=== PATIENT | male | born 2000 | race Two or more races ===

== ENCOUNTER 2025-03-09 10:32 | Emergency (ER) | payer SELFPAY ==
[2025-03-09 10:41] VITALS: BP 127/73; PULSE 86; RESP 17; TEMP 36.7; O2SAT 98; BMI 21.8
--- NOTE | 2025-03-09 10:45 | XR_ITS ---
Examination: PA lateral chest 2 views TECHNIQUE: Upright PA lateral chest 2 views Date and time: March 09, 2025 at 1107 hours INDICATIONS: Coughing today FINDINGS: Normal heart size. Lungs are clear. The osseous structures are intact IMPRESSION: No active disease
--- NOTE | 2025-03-09 13:21 | EDNOTE_ITS ---
Upper Respiratory Inf. RME/HPI General Chief Complaint: Abdominal Pain Stated Complaint: COUGH X 3 WEEKS Time Seen by Provider: 03/09/25 10:45 Arrival date/time: 03/09/25 10:32 24-year-old male presents to the Emergency Department today with complaints of cough ongoing x 3 weeks patient reports no fever. Limitations: no limitations Related Data Previous Rx's ?Medication ?Instructions ?Recorded Ibuprofen * (MOTRIN *) 400 mg PO Q6HR PRN PAIN #25 tabs 10/29/17 albuterol sulfate 90 mcg/actuation 2 puff inhalation Q 6H PRN 03/09/25 aerosol inhaler (Ventolin HFA) shortness of breath or wheezing #8.5 grams benzonatate 100 mg capsule 100 mg PO TID #14 caps 02/13 04/08 prednisone 20 mg tablet 20 mg PO BID 3 days #6 tabs 03/09/25 Allergies Allergy/AdvReac Type Severity Reaction Status Date / Time NKA* Allergy Uncoded 03/09/25 10:35 Review of Systems Review of Systems Systems Reviewed: All systems reviewed, normal except as documented Constitutional Constitutional: Reports system reviewed and no additional complaints, except as documented, Denies fever(s) and Denies headache(s) Eyes Eyes: Reports system reviewed and no additional complaints, except as documented and Denies blurry vision ENT Ears, Nose, Mouth, and Throat: Reports system reviewed and no additional complaints, except as documented, Denies headache(s), Denies nasal congestion and Denies nasal discharge Cardiovascular Cardiovascular: Reports system reviewed and no additional complaints, except as documented, Denies chest pain and Denies dyspnea Respiratory Respiratory: Reports system reviewed and no additional complaints, except as documented, Reports chest congestion, Reports cough and Denies dyspnea Gastrointestinal Gastrointestinal: Reports system reviewed and no additional complaints, except as documented and Denies abdominal pain Integumentary/Breasts Skin/Breast: Reports system reviewed and no additional complaints, except as documented and Denies rash Neurologic Neurologic: Reports system reviewed and no additional complaints, except as documented, Reports as per HPI and Denies headache(s) Past Medical History Social History SMOKING STATUS: Never smoker ED Exam General Limitations: Present no limitations General appearance: Present alert and in no apparent distress Head Head exam: Present atraumatic, normocephalic and normal inspection Eye Eye exam: Present normal appearance, PERRL and EOMI; Absent conjunctival injection ENT ENT exam: Present normal exam, normal oropharynx and mucous membranes moist Neck Neck exam: Present normal inspection, full ROM and trachea midline Chest Chest inspection: Present normal inspection and symmetric chest wall rise Respiratory Respiratory exam: Present normal lung sounds bilaterally; Absent respiratory distress, wheezes, stridor, accessory muscle use or prolonged expiratory phase Cardiovascular Cardiovascular exam: Present regular rate, normal rhythm and normal heart sounds Abdominal Exam Abdominal exam: Present soft and normal bowel sounds; Absent distention, tenderness, guarding, rebound or rigidity Extremities Exam Extremities exam: Present normal inspection and full ROM Back Exam Back exam: Present normal inspection and full ROM Neurological Exam Neurological exam: Present alert, oriented X3, CN II-XII intact, normal gait and reflexes normal; Absent motor sensory deficit Psychiatric Psychiatric exam: Present normal affect and normal mood Skin Skin exam: Present warm, dry, intact and normal color; Absent rash Course Quality Measures none Orders Category Date Time Status Bedside COVID-19 Antigen Test NOW Care 03/09/25 10:45 Completed Bedside Influenza A&B Antigen Test NOW Care 03/09/25 10:45 Completed XR chest 2V Stat Exams 03/09/25 10:45 Completed Vital Signs Vital signs: Vital Signs Temperature 98.1 F 03/09/25 10:41 Pulse Rate 86 03/09/25 10:41 Respiratory Rate 17 03/09/25 10:41 Blood Pressure 127/73 03/09/25 10:41 Pulse Oximetry (%) 98 03/09/25 10:41 Oxygen Delivery Method Room Air 03/09/25 10:41 O2 [id number] r.a wnl Upper Respiratory Infection MDM Narrative MDM Narrative:: 24-year-old male presents to the Emergency Department today with complaints of cough ongoing x 3 weeks patient reports no fever. Patient data External records reviewed:: [facility] previous records Clinical information provided by:: parent Social determinants that could affect healthcare access:: none Patient has the following chronic illnesses:: None How is presenting disease/condition affected by chronic disease/condition?: no chronic disease Evaluation data The following diagnostics were reviewed and interpreted by me:: lab results and radiology exam(s) Lab and/or radiology exams considered but not ordered:: Labs and radiology obtained Interpretation Summary: Read by me Medications / Prescriptions Medications or Prescriptions considered but not ordered:: Given Medication administrations:: Given Consultations Consultation(s) initiated? (list below): No Diagnosis Upper Respiratory Differential Diagnosis: upper respiratory infection, sinusitis and viral infection Most likely diagnosis given after review of the tests above:: URI Admission Indicated Admission indicated?: not indicated Admission Request Was there a request for admission?: No Disposition Plan Disposition Plan: Discharge Discharge Attestation Discharge Attestation: The patient and all family members were given an opportunity to ask questions and understood the discharge instructions. Discharge instructions specifically effects, indications for sooner follow up or return to the emergency department, and the expected course of current diagnosis. Patient condition: Stable Discharge Plan Plan Patient Disposition: HOME (Self Care) Discharge Disposition comment: Stable Prescriptions/Referrals Prescriptions/Med Rec: New prednisone 20 mg tablet 20 mg PO BID 3 Days Qty: 6 0RF benzonatate 100 mg capsule 100 mg PO TID Qty: 14 0RF albuterol sulfate [Ventolin HFA] 90 mcg/actuation HFA aerosol inhaler 2 puff inhalation Q6H PRN (Reason: shortness of breath or wheezing) Qty: 8.5 0RF No Action Ibuprofen * (MOTRIN *) 400 MG tablet 400 mg PO Q6HR PRN (Reason: PAIN) Qty: 25 0RF Referrals: No Primary/Family,Physician [Primary Care Provider] - 03/10/25 Problem List Clinical Impression: Cough Patient/Caregiver Discharge Instructions Education Materials: ED Cough Chronic Uncertain Cause Adult Additional Instructions: Please follow up with your primary care doctor in the next 24-48hrs for any worsening symptoms return here immediately Print Language: Persian Stand Alone Forms: Bri Award Info., Patient Portal Info Letter PA/LO Supervising Physician PA/LO Supervising Physician: Dr [email or web address]
== END 2025-03-09 13:29 | disposition home or self-care (01) ==
PROVIDERS: Emergency Provider Family Medicine
DX: R05.9 Cough, unspecified (principal)
CPT/HCPCS: 71046; 87400; 87811; 99283